=== PATIENT | male | born 1945 | race Caucasian/White ===

== ENCOUNTER → 2023-05-16 06:37 | Outpatient (REF) | payer MEDICARE, OTHER, SELFPAY ==
[2023-05-16 08:09] LABS: Glucose 92 mg/dl (70-99)
[2023-05-16 12:29] LABS: Glycohemoglobin (HgbA1c) 5.6 % (4.0-5.6)
== END ==
LOC: REG 06:37
PROVIDERS: ATTENDING PHYSICIAN Family Medicine
DX: R73.09 Other abnormal glucose (principal)
CPT/HCPCS: 36415; 82947; 83036

== ENCOUNTER → 2023-07-31 12:51 | Outpatient (REF) | payer MEDICARE, OTHER, SELFPAY | LOC: DHCBS MAIN 12:51 | PROVIDERS: ATTENDING PHYSICIAN Internal Medicine Cardiovascular Disease; FAMILY PHYSICIAN Family Medicine | DX: E78.2 Mixed hyperlipidemia (principal) | CPT/HCPCS: 93306 ==